=== PATIENT | male | born 1965 | race Caucasian/White ===

== ENCOUNTER 2019-08-14 11:54 | Inpatient (IN) | payer OTHER ==
[~2019-08-14] VITALS: Ht 193 cm; Wt 96.8 kg
[2019-08-14 11:56] VITALS: Ht 193 cm; Wt 96.8 kg
[2019-08-14 12:22] LABS: BASOPHIL % 0.3 % (0-2); PLATELET COUNT 282 x10^3mcL (130-400); RED CELL DISTRIBUTION WIDTH 12.8 % (11.5-14.5)
[2019-08-14 12:41] LABS: CALCIUM 8.6 mg/dL (8.5-10.1); CARBON DIOXIDE 22.3 mmol/L (21-32); CHLORIDE SERUM 101 mmol/L (98-107); CREATININE SERUM 1.3 mg/dL (0.7-1.3); GFR1 > 60 mL/min; GLUCOSE SERUM 134 mg/dL (74-106); POTASSIUM SERUM 3.5 mmol/L (3.5-5.1); SODIUM SERUM 137 mmol/L (136-145)
[2019-08-14 12:45] LABS: ALBUMIN 3.8 g/dL (3.4-5.0); ALKALINE PHOSPHATASE 85 U/L (46-116); ALT/SGPT 103 U/L (16-63); AST/SGOT 66 U/L (15-37); TOTAL PROTEIN, SERUM 7.8 g/dL (6.4-8.2)
[2019-08-14] MEDS ORDERED: LASIX20 MG PO (13:24)
[2019-08-14] MEDS ORDERED: DIGOXIN0.125 M1 PO (13:24)
[2019-08-14] MEDS ORDERED: METOPROLOL TART50 MG PO (13:25)
[2019-08-14 13:26] LABS: T3 TOTAL 0.98 ng/mL
[2019-08-14] MEDS ORDERED: XARELTO PO (13:27)
[2019-08-14] MEDS ORDERED: ENTRESTO1 TA2 PO (13:28)
[2019-08-14] MEDS ORDERED: BACTRIM DS1 TAB PO (13:29)
[2019-08-14] MEDS ORDERED: DILTIAZEM PO (13:30)
[2019-08-14] MEDS ORDERED: EPZICOM1 TAB (13:30)
[2019-08-14 13:47] LABS: FREE T4 1.78 ng/dL (0.76-1.46); FREE THYROXINE INDEX 3.3 ug/dL (1.4-4.5); T4(THYROXINE) 8.8 ug/dL (4.7-13.3)
[2019-08-14 14:57] LABS: MAGNESIUM 1.6 mg/dL (1.8-2.4)
[2019-08-14 14:58] LABS: CHOLESTEROL/HDL RATIO 5.9
[2019-08-14 16:28] VITALS: BP 119/82
[2019-08-14 19:30] VITALS: BP 104/81
[2019-08-14 21:47] LABS: microscopic required? NO
[2019-08-14 21:57] LABS: UA SPECIFIC GRAVITY 1.025 (1.005-1.035); urine erythrocyte NEGATIVE (NEGATIVE)
[2019-08-14 22:11] LABS: AMPHETAMINE QUAL UR NONE DETECTED (See below)
[2019-08-14 23:30] VITALS: BP 117/85
[2019-08-15 03:42] VITALS: BP 111/72
[2019-08-15 05:45] LABS: BASOPHIL % 0.4 % (0-2); PLATELET COUNT 219 x10^3mcL (130-400); RED CELL DISTRIBUTION WIDTH 13.1 % (11.5-14.5)
[2019-08-15 05:53] LABS: CALCIUM 8.6 mg/dL (8.5-10.1); CARBON DIOXIDE 30.8 mmol/L (21-32); CHLORIDE SERUM 100 mmol/L (98-107); CREATININE SERUM 1.1 mg/dL (0.7-1.3); GFR1 > 60 mL/min; GLUCOSE SERUM 84 mg/dL (74-106); POTASSIUM SERUM 4.4 mmol/L (3.5-5.1); SODIUM SERUM 135 mmol/L (136-145)
[2019-08-15 08:00] VITALS: BP 122/95
[2019-08-15 11:54] VITALS: BP 120/82
[2019-08-15 17:00] VITALS: BP 111/73
[2019-08-15 21:00] VITALS: BP 114/75
[2019-08-16 05:40] VITALS: BP 103/70
[2019-08-16 06:52] LABS: CALCIUM 8.8 mg/dL (8.5-10.1); CARBON DIOXIDE 26.6 mmol/L (21-32); CHLORIDE SERUM 100 mmol/L (98-107); CREATININE SERUM 1.1 mg/dL (0.7-1.3); GFR1 > 60 mL/min; GLUCOSE SERUM 81 mg/dL (74-106); POTASSIUM SERUM 4.1 mmol/L (3.5-5.1); SODIUM SERUM 136 mmol/L (136-145)
[2019-08-16 10:01] VITALS: BP 124/68
[2019-08-16 13:07] VITALS: BP 102/65
[2019-08-16 17:56] VITALS: BP 149/73
[2019-08-16 20:38] VITALS: BP 118/79
[2019-08-17 05:17] VITALS: BP 126/79
[2019-08-17 06:31] LABS: CALCIUM 8.7 mg/dL (8.5-10.1); CARBON DIOXIDE 27.4 mmol/L (21-32); CHLORIDE SERUM 99 mmol/L (98-107); CREATININE SERUM 1.2 mg/dL (0.7-1.3); GFR1 > 60 mL/min; GLUCOSE SERUM 80 mg/dL (74-106); POTASSIUM SERUM 4.3 mmol/L (3.5-5.1); SODIUM SERUM 135 mmol/L (136-145)
[2019-08-17 06:53] LABS: BASOPHIL % 0.6 % (0-2); PLATELET COUNT 262 x10^3mcL (130-400); RED CELL DISTRIBUTION WIDTH 12.9 % (11.5-14.5)
[2019-08-17 08:17] VITALS: BP 120/72
[2019-08-17 13:19] VITALS: BP 110/74
[2019-08-17 17:13] VITALS: BP 129/63
[2019-08-17 21:23] VITALS: BP 130/82
[2019-08-18 05:48] VITALS: BP 116/77
[2019-08-18 08:23] VITALS: BP 132/77
[2019-08-18 12:37] VITALS: BP 132/77
[2019-08-18 12:50] VITALS: BP 120/64
== END 2019-08-18 16:40 | disposition other institution (70) | DRG 281 ==
LOC: ED 11:54 → DU 13:00 → IC 13:00 → DU 08-15 15:16
PROVIDERS: Emergency Medicine; ADMIT Internal Medicine
PROC: 4B02XTZ Measurement of Cardiac Defibrillator, External Approach (ICD-10-PCS; principal; 2019-08-15)
DX: T82.111A Breakdown (mechanical) of cardiac pulse generator (battery), initial encounter (principal); I21.A1 Myocardial infarction type 2; I42.9 Cardiomyopathy, unspecified; I11.0 Hypertensive heart disease with heart failure; I50.9 Heart failure, unspecified; I48.91 Unspecified atrial fibrillation; I25.10 Atherosclerotic heart disease of native coronary artery without angina pectoris; Y83.8 Other surgical procedures as the cause of abnormal reaction of the patient, or of later complication, without mention of misadventure at the time of the procedure; Y92.018 Other place in single-family (private) house as the place of occurrence of the external cause; Z68.26 Body mass index [BMI] 26.0-26.9, adult; Z86.74 Personal history of sudden cardiac arrest; Z95.810 Presence of automatic (implantable) cardiac defibrillator; Z88.0 Allergy status to penicillin; Z88.6 Allergy status to analgesic agent; Z91.010 Allergy to peanuts; Z79.899 Other long term (current) drug therapy
CPT/HCPCS: 83880; 84439; 97116-GP; 97530-GP; A9500; G0378; J1160; J2785; J3010; J3475; J3490; J7040; Q0092